=== PATIENT | male | born 2000 | race Caucasian/White ===

== ENCOUNTER 2019-01-30 09:07 | Emergency (ER) | payer SELFPAY ==
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
== END 2019-01-30 10:36 | disposition home or self-care (01) ==
LOC: MW.ED 09:07
DX: T26.92XA Corrosion of left eye and adnexa, part unspecified, initial encounter (principal); T26.91XA Corrosion of right eye and adnexa, part unspecified, initial encounter; Z77.098 Contact with and (suspected) exposure to other hazardous, chiefly nonmedicinal, chemicals; F17.210 Nicotine dependence, cigarettes, uncomplicated
CPT/HCPCS: 99283